=== PATIENT | female | born 2000 ===

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

== ENCOUNTER 2023-05-30 19:44 | Emergency (ER) | payer MEDICAID, SELFPAY ==
[2023-05-30 19:46] VITALS: BP 131/75; PULSE 86; RESP 18; TEMP 36.4; O2SAT 99; BMI 34.0
--- NOTE | 2023-05-30 19:47 | ED_ITS ---
HPI - General Adult General Chief complaint: Abdominal Pain Stated complaint: nausea, vomiting Time Seen by Provider: 05/30/23 20:25 Source: patient Mode of arrival: ambulatory Limitations: no limitations History of Present Illness HPI narrative: Patient is a 23-year-old female presenting to emergency department for evaluation of nausea and vomiting in the setting of recent positive testing. She has outpatient appointment scheduled with Dr. Rhett Man 06/26/2023. She denies abdominal pain, vaginal bleeding, fevers, chills, dysuria, urinary frequency/urgency/hesitancy. Last menstrual period 04/27/2023. Related Data Previous Rx's Medication Instructions Recorded medroxyprogesterone 10 mg tablet 10 mg PO DAILY #10 tabs 03/22/21 (Provera) medroxyprogesterone 10 mg tablet 10 mg PO DAILY 10 days #10 tabs 03/22/21 (Provera) desogestrel 0.15 mg-ethinyl 1 tab PO DAILY 28 days #28 tabs 07/18/21 estradiol 0.03 mg tablet (Apri) doxylamine succinate 25 mg tablet 25 mg PO BEDTIME PRN nausea and 05/30/23 (Unisom (doxylamine)) vomiting #14 tabs pyridoxine (vitamin B6) 25 mg 25 mg PO TID #30 tabs 05/30/23 tablet Allergies Allergy/AdvReac Type Severity Reaction Status Date / Time No Known Allergies Allergy Verified 04/25/21 11:12 Review of Systems Review of Systems: Yes all other systems are reviewed and are negative PMFSH Past Medical History Attestation statement: The following information was validated with the patient. Source: old records reviewed Social History Social History Alcohol intake: never Smoked in Last 30 Days: Yes Use of substances other than those prescribed or required for medical reasons: No Advance Directives: No Advance Directives Information Provided: No Patient : Yes Physical Exam ED Vital Signs: Vital Signs - 24 hr 05/30/23 19:46 05/30/23 22:47 05/30/23 22:47 Temperature 97.6 F 98.5 F Pulse Rate 86 75 75 Respiratory Rate 18 20 Blood Pressure 131/75 125/80 125/80 Pulse Oximetry 99 100 Oxygen Delivery Method Room Air Room Air 05/30/23 22:48 05/30/23 22:49 Temperature Pulse Rate 85 93 Respiratory Rate Blood Pressure 135/83 141/95 H Pulse Oximetry Oxygen Delivery Method BMI result Body Mass Index 34.0 Appearance: Alert.?Oriented to person, place and time. No acute distress.?Normal affect. Eyes: Pupils equal, round and reactive to light.? ENT: Pharynx normal.?? Neck: Normal inspection.? Neck supple.?? CVS: Heart sounds normal. Normal heart rate and rhythm.? Pulses normal.?? Respiratory: No respiratory distress.? Lung sounds clear to auscultation bilaterally?? Abdomen: Soft and non-tender. Normoactive bowel sounds. Skin: Skin warm and dry.? Normal skin color.? Extremities: No lower extremity edema.? Neuro: Moves all extremities spontaneously. Sensation intact bilaterally. Ambulates with normal steady gait. Course Course Course Narrative: This is an RME: Additional HPI, ROS, PE not included below will be deferred to primary provider. 23 year old female presents w/ nausea, dizziness, abd discomfort and late menses last period sometime in March. No vaginal bleeding or dc, fevers, chills, cp, sob, [place], vision changes . Two + at home preg tests Plan- labs UA Medical Decision Making Medical Decision Making MDM Narrative: Patient is a 23-year-old female presenting to emergency department for evaluation of nausea and vomiting in the setting of recent . Reviewed serum labs obtained from initial rapid medical examination, hCG appears consistent with of approximate 4-6 weeks gestation which correlates with her last menstrual period. I spoke with patient, she declines any abdominal pain, upper abdominal examination is benign, I do not have concern at this time for acute abdomen; appendicitis, diverticulitis, or ectopic . She is able to tolerate fluids as well as solids at this time. CBC is overall unremarkable, a mild leukocytosis which I suspect is reactive due to her vomiting, CMP is unremarkable; LFTs and lipase are within normal limits, low suspicion for cholecystitis, cholelithiasis, cholangitis, pancreatitis. I discussed management with pyridoxine in addition a Unisom, outpatient follow-up with medical sales associate. She is agreeable with this plan of care. Stable for discharge. Differential Diagnosis Differential Diagnoses: The differential diagnosis associated with the pre sentation includes (Gastroenteritis, associated nausea and vomiting, GERD, urinary tract infection, additional as per narrative above) Lab Data MDM Lab Attestation statement: I reviewed the patient's lab results. (As per narrative above) 05/30/23 19:59 05/30/23 19:59 Labs: Lab Results 05/30/23 05/30/23 05/30/23 Range/Units 19:59 19:59 19:59 WBC 13.3 H (4.8-10.8) X10*3/uL RBC 4.27 (4.20-5.50) X10*6/uL Hgb 12.0 (12.0-16.0) g/dl Hct 36.2 L (37.0-47.0) % MCV 84.8 (80.0-98.0) fL MCH 28.1 (27.0-33.0) pg MCHC 33.1 (31.0-35.0) g/dl RDW 14.0 (11.0-16.0) % Plt Count 407 H (160-400) X10*3/uL MPV 9.3 L (9.4-12.3) fL Immature Gran % (Auto) 0.4 (0.0-0.4) % Neut % (Auto) 63.3 (45-73) % Lymph % (Auto) 29.5 (20-40) % [place] % (Auto) 5.2 (2-11) % Eos % (Auto) 1.5 (0-4) % Baso % (Auto) 0.1 (0-2) % Lymph # (Auto) 3.9 (1.2-4.9) X10*3/uL [place] # (Auto) 0.7 (0.1-1.2) X10*3/uL Eos # (Auto) 0.2 (0.0-0.4) X10*3/uL Baso # (Auto) 0.0 (0.0-0.2) X10*3/uL Abs Immat Gran (auto) 0.06 H (0.00-0.03) X10*3/uL Absolute Neuts (auto) 8.4 H (2.0-8.3) x10*3/uL Absolute Nucleated RBC 0.000 (0.0-0.012) X10*3/uL Nucleated RBC % (auto) 0.0 (0.0-0.2) /100WBC Sodium 137 (135-145) mmol/L Potassium 3.5 (3.3-5.1) mmol/L Chloride 109 H (96-108) mmol/L Carbon Dioxide 21 L (22-29) mmol/L Anion Gap 11 L (12-20) BUN 7 L (9-16) mg/dL Creatinine 0.70 (0.5-1.4) mg/dL Estim Creat Clear Calc 123.1 Estimated GFR > 60 Random Glucose 91 (60-115) mg/dL Calcium 9.1 (8.4-10.2) mg/dL Magnesium 1.8 (1.6-2.6) mg/dL Total Bilirubin 0.5 (0.0-1.0) mg/dL AST 17 (5-31) U/L ALT 20 (0-31) U/L Alkaline Phosphatase 88 (39-117) U/L Total Protein 6.9 (6.5-8.0) g/dL Albumin 3.6 (3.5-5.0) g/dL Lipase 17 (8-78) U/L Beta HCG, Quant 995 mIU/mL Urine Color Urine Appearance Urine pH (5.0-9.0) Ur Specific [place] (1.005-1.025) Urine Protein (Neg-Trace) mg/dL Urine Glucose (UA) (Negative) mg/dL Urine Ketones (Negative) mg/dL Urine Blood (Negative) Urine Nitrite (Negative) Ur Leukocyte Esterase (Negative) Urine Test (NEGATIVE) 05/30/23 05/30/23 Range/Units 19:59 19:59 WBC (4.8-10.8) X10*3/uL RBC (4.20-5.50) X10*6/uL Hgb (12.0-16.0) g/dl Hct (37.0-47.0) % MCV (80.0-98.0) fL MCH (27.0-33.0) pg MCHC (31.0-35.0) g/dl RDW (11.0-16.0) % Plt Count (160-400) X10*3/uL MPV (9.4-12.3) fL Immature Gran % (Auto) (0.0-0.4) % Neut % (Auto) (45-73) % Lymph % (Auto) (20-40) % [place] % (Auto) (2-11) % Eos % (Auto) (0-4) % Baso % (Auto) (0-2) % Lymph # (Auto) (1.2-4.9) X10*3/uL [place] # (Auto) (0.1-1.2) X10*3/uL Eos # (Auto) (0.0-0.4) X10*3/uL Baso # (Auto) (0.0-0.2) X10*3/uL Abs Immat Gran (auto) (0.00-0.03) X10*3/uL Absolute Neuts (auto) (2.0-8.3) x10*3/uL Absolute Nucleated RBC (0.0-0.012) X10*3/uL Nucleated RBC % (auto) (0.0-0.2) /100WBC Sodium (135-145) mmol/L Potassium (3.3-5.1) mmol/L Chloride (96-108) mmol/L Carbon Dioxide (22-29) mmol/L Anion Gap (12-20) BUN (9-16) mg/dL Creatinine (0.5-1.4) mg/dL Estim Creat Clear Calc Estimated GFR Random Glucose (60-115) mg/dL Calcium (8.4-10.2) mg/dL Magnesium (1.6-2.6) mg/dL Total Bilirubin (0.0-1.0) mg/dL AST (5-31) U/L ALT (0-31) U/L Alkaline Phosphatase (39-117) U/L Total Protein (6.5-8.0) g/dL Albumin (3.5-5.0) g/dL Lipase (8-78) U/L Beta HCG, Quant mIU/mL Urine Color Yellow Urine Appearance Cloudy Urine pH 6.0 (5.0-9.0) Ur Specific [place] 1.020 (1.005-1.025) Urine Protein Negative (Neg-Trace) mg/dL Urine Glucose (UA) Negative (Negative) mg/dL Urine Ketones Negative (Negative) mg/dL Urine Blood Negative (Negative) Urine Nitrite Negative (Negative) Ur Leukocyte Esterase Negative (Negative) Urine Test POSITIVE H (NEGATIVE) Tests considered The following testing was considered but not selected: i considered pelvic/ ultrasound, however patient is not having any abdominal pain, or vaginal bleeding that would warrant emergent ultrasound at this time. In addition given early gestation, advised outpatient follow-up with medical sales associate. Prescription Management I considered prescription management with: Other (Antiemetics as per discharge) Discharge Plan Discharge Clinical Impression: Nausea and vomiting during Patient Disposition: Home, Self-Care Instructions: Nausea and Vomiting in (ED) Additional Instructions: Please follow-up with your OB doctor as scheduled, I have sent prescriptions for the nausea medication to your pharmacy. You may return back to emergency department any new or worsening symptoms or c oncerns. Prescriptions: New pyridoxine (vitamin B6) 25 mg tablet 25 mg PO TID Qty: 30 0RF Unisom (doxylamine) 25 mg tablet 25 mg PO BEDTIME PRN (Reason: nausea and vomiting) Qty: 14 0RF No Action medroxyprogesterone [Provera] 10 mg tablet 10 mg PO DAILY Qty: 10 0RF medroxyprogesterone [Provera] 10 mg tablet 10 mg PO DAILY 10 Days Qty: 10 0RF desogestrel-ethinyl estradiol [Apri] 0.15-0.03 mg tablet 1 tab PO DAILY 28 Days Qty: 28 2RF Referrals: Jacky Delaney MD [Physician] - Interventions: ED Discharge Assessment Last Done: 05/30/23 23:35 Discharge Date/Time: 05/30/23 23:36
--- NOTE | 2023-05-30 19:54 | MHC.EDTECH ---
This tech obtained labs,UA in triage area. Unable to get ortho's due to area, stitch bonding machine drawer in was made aware
[2023-05-30 20:04] LABS: MANUAL DIFF FLAG NO
[2023-05-30 20:05] LABS: Basophils Percent Auto 0.1 % (0-2); Eosinophils Absolute Auto 0.2 X10*3/uL (0.0-0.4); Eosinophils Percent Auto 1.5 % (0-4); Hematocrit 36.2 % (37.0-47.0); Imm Gran Abs Auto 0.06 X10*3/uL (0.00-0.03); Imm Gran Pct Auto 0.4 % (0.0-0.4); Lymphocytes Absolute Auto 3.9 X10*3/uL (1.2-4.9); Lymphocytes Percent Auto 29.5 % (20-40); Mean Corpuscular HGB Conc 33.1 g/dl (31.0-35.0); Mean Corpuscular Hemoglobin 28.1 pg (27.0-33.0); Mean Corpuscular Volume 84.8 fL (80.0-98.0); Mean Platelet Volume 9.3 fL (9.4-12.3); Monocytes Absolute Auto 0.7 X10*3/uL (0.1-1.2); Monocytes Percent Auto 5.2 % (2-11); Neutrophils Absolute Auto 8.4 x10*3/uL (2.0-8.3); Neutrophils Percent Auto 63.3 % (45-73); Platelet Count 407 X10*3/uL (160-400); Red Blood Count 4.27 X10*6/uL (4.20-5.50); White Blood Count 13.3 X10*3/uL (4.8-10.8)
[2023-05-30 20:08] LABS: Appearance Urine Cloudy; Color Urine Yellow; Glucose Urine UA Negative (Negative); Leukocyte Esterase Urine Negative (Negative); Nitrite Urine Negative (Negative); Urine Blood Negative (Negative); Urine Ketones Negative (Negative); Urine Protein Negative (Neg-Trace)
[2023-05-30 20:24] LABS: Alanine Aminotransferase 20 U/L (0-31); Albumin Level 3.6 g/dL (3.5-5.0); Alkaline Phosphatase 88 U/L (39-117); Anion Gap 11 (12-20); Aspartate Amino Transferase 17 U/L (5-31); Bilirubin Total 0.5 mg/dL (0.0-1.0); Blood Urea Nitrogen 7 mg/dL (9-16); Calcium 9.1 mg/dL (8.4-10.2); Carbon Dioxide 21 mmol/L (22-29); Chloride 109 mmol/L (96-108); Creatinine Clr Calc Pharmacy 123.1; Estimated Glomerular Filt Rate > 60; Glucose Random 91 mg/dL (60-115); Lipase 17 U/L (8-78); Magnesium 1.8 mg/dL (1.6-2.6); Potassium 3.5 mmol/L (3.3-5.1); Sodium 137 mmol/L (135-145); Total Protein 6.9 g/dL (6.5-8.0)
[2023-05-30 20:31] LABS: HCG Quantitative 995 mIU/mL
[2023-05-30 20:58] LABS: UPreg QC Valid YES; Urine Pregnancy POSITIVE (NEGATIVE)
[2023-05-30 22:47] VITALS: BP 125/80; PULSE 75; RESP 20; TEMP 36.9; O2SAT 100
[2023-05-30 22:48] VITALS: BP 135/83; PULSE 85
[2023-05-30 22:49] VITALS: BP 141/95; PULSE 93
== END 2023-05-30 23:36 | disposition home or self-care (01) ==
PROVIDERS: Physician Assistant; Emergency Provider Student in an Organized Health Care Education/Training Program
DX: O26.891 Other specified pregnancy related conditions, first trimester (principal); R11.2 Nausea with vomiting, unspecified; Z3A.01 Less than 8 weeks gestation of pregnancy
CPT/HCPCS: 36415; 80053; 81003; 81025; 83690; 83735; 84702; 85025; 99283; 99284

== ENCOUNTER 2023-06-03 21:04 | Emergency (ER) | payer MEDICAID, SELFPAY ==
[2023-06-03 21:09] VITALS: BP 139/74; PULSE 82; RESP 16; TEMP 36.4; O2SAT 99; BMI 34.0
[2023-06-04] VITALS: BP 140/74; PULSE 80; RESP 16; TEMP 36.5; O2SAT 99
--- NOTE | 2023-06-04 00:08 | ED.GENADULT ---
HPI - General Adult General Chief complaint: General Medical Stated complaint: / leaking water? Time Seen by Provider: 06/03/23 23:40 Source: patient Mode of arrival: ambulatory Limitations: no limitations History of Present Illness HPI narrative: Patient comes in the emergency room complaining of vaginal fluid leakage. Patient states she is approximately 5-6 weeks of gestational age, she is a this time. Patient denies any abdominal cramping, no vaginal bleeding, no pain. Patient denies hematuria or dysuria, no URI or UTI symptoms. Patient states she was in the shower and felt some fluid running down her leg, was not sure what happened. It only happened once. Related Data Previous Rx's Medication Instructions Recorded medroxyprogesterone 10 mg tablet 10 mg PO DAILY #10 tabs 03/22/21 (Provera) medroxyprogesterone 10 mg tablet 10 mg PO DAILY 10 days #10 tabs 03/22/21 (Provera) desogestrel 0.15 mg-ethinyl 1 tab PO DAILY 28 days #28 tabs 07/18/21 estradiol 0.03 mg tablet (Apri) doxylamine succinate 25 mg tablet 25 mg PO BEDTIME PRN nausea and 05/30/23 (Unisom (doxylamine)) vomiting #14 tabs pyridoxine (vitamin B6) 25 mg 25 mg PO TID #30 tabs 05/30/23 tablet nitrofurantoin 100 mg PO Q12H 7 days #14 caps 06/04/23 monohydrate/macrocrystals 100 mg capsule (Macrobid) Allergies Allergy/AdvReac Type Severity Reaction Status Date / Time No Known Allergies Allergy Verified 06/03/23 21:08 Review of Systems Review of Systems: Constitutional : No Weight loss, No Fever, No Chills, No Night Sweats, No Fatigue, No Malaise ENT/Mouth : No Hearing loss, No Ear Pain, No Nasal Congestion, No Sinus Pain, No Hoarseness, No sore throat, No Rhinorrhea, No Swallowing Difficulty Eyes: No Eye Pain, No Swelling, No Redness, No Foreign Body, No Discharge, No Vision Changes Cardiovascular : No Chest Pain, No SOB, No Dyspnea on Exertion, No Orthopnea, No Edema, No Palpitations Respiratory : No Cough, No Sputum, No Wheezing, No Smoke Exposure, No Dyspnea Gastrointestinal : No Nausea, No Vomiting, No Diarrhea, No Constipation, No abdominal Pain, No Hematochezia, No Melena Genitourinary : no irregular bleeding, No Dysuria, No Urinary Frequency, No Hematuria, No Urinary Incontinence, No Urgency, No Flank Pain, No Urinary Flow Changes, No Hesitancy : Vaginal fluid leakage in Musculoskeletal : No joint pain, No Myalgias, No Joint Swelling Skin : No Skin Lesions, No rash Neuro : No Weakness, No Numbness, No Paresthesias, No Loss of Consciousness, No Dizziness, No Headache Psych : No Anxiety/Panic, No Depression, No SI/HI/AH/VH, No Social Issues, Heme/Lymph: No Bruising, No Bleeding,No Lymphadenopathy Endocrine : No Polyuria, No Polydipsia, No Temperature Intolerance [facility] Social History Social History Alcohol intake: never Smoked in Last 30 Days: No Use of substances other than those prescribed or required for medical reasons: No Advance Directives: No Advance Directives Information Provided: No Physical Exam ED Vital Signs: Vital Signs - 24 hr 06/03/23 21:09 06/04/23 00:00 Temperature 97.6 F 97.7 F Pulse Rate 82 80 Respiratory Rate 16 16 Blood Pressure 139/74 140/74 H Pulse Oximetry 99 99 Oxygen Delivery Method Room Air Room Air BMI result Body Mass Index 34.0 Const Other: Appearance: Alert. Oriented X3. No acute distress. Eyes: Pupils equal, round and reactive to light. ENT: Pharynx normal. Neck: Normal inspection. Neck supple. No lymph nodes noted. No crepitus CVS: Normal heart rate and rhythm. Pulses normal. Normal S1 and S2 Respiratory: No respiratory distress. Breath sounds normal. No Wheezing. No rales Abdomen: Soft and nontender. No rigidity. No distention. Skin: Skin warm and dry. Normal skin color. Normal skin turgor. Extremities: No lower extremity edema. No Lacerations. No Rash Neuro: Oriented X 3. No motor deficit. No sensory deficit. Moving all extremities. No slurred speech. CN 2 through 12 grossly intact Psych: calm, cooperative, normal affect Medical Decision Making Medical Decision Making MDM Narrative: -my interpretation of labs, patient's hCG is 3497 -my interpretation of ultrasound, positive intrauterine without pole -I discussed the ultrasound findings with the patient, by ultrasound she is 5 weeks +1 day, estimated date of delivery is 02/02/2024, trace fluid in the endometrial canal versus small subchorionic hemorrhage. I discussed with the patient the ultrasound findings, discussed with the patient that it is still early in the . Her could evolve into a normal or become a miscarriage. Patient has an appointment pending with Dr. Delaney -UTI positive, patient will be prescribed Macrobid Differential Diagnosis Differential Diagnoses: The differential diagnosis associated with the presentation includes (Subchorionic hemorrhage, physiologic fluid, threatened ) Lab Data MDM Lab Attestation statement: I reviewed the patient's lab results. 06/03/23 21:19 06/03/23 21:17 Labs: Lab Results 06/03/23 06/03/23 06/03/23 Range/Units 21:17 21:19 21:19 WBC 15.1 H (4.8-10.8) X10*3/uL RBC 4.57 (4.20-5.50) X10*6/uL Hgb 13.0 (12.0-16.0) g/dl Hct 38.9 (37.0-47.0) % MCV 85.1 (80.0-98.0) fL MCH 28.4 (27.0-33.0) pg MCHC 33.4 (31.0-35.0) g/dl RDW 14.2 (11.0-16.0) % Plt Count 457 H (160-400) X10*3/uL MPV 9.4 (9.4-12.3) fL Absolute Nucleated RBC 0.000 (0.0-0.012) X10*3/uL Nucleated RBC % (auto) 0.0 (0.0-0.2) /100WBC Sodium 137 (135-145) mmol/L Potassium 3.9 (3.3-5.1) mmol/L Chloride 106 (96-108) mmol/L Carbon Dioxide 23 (22-29) mmol/L Anion Gap 12 (12-20) BUN 9 (9-16) mg/dL Creatinine 0.93 (0.5-1.4) mg/dL Estim Creat Clear Calc 92.7 Estimated GFR > 60 Random Glucose 84 (60-115) mg/dL Calcium 9.5 (8.4-10.2) mg/dL Total Bilirubin 0.2 (0.0-1.0) mg/dL AST 22 (5-31) U/L ALT 25 (0-31) U/L Alkaline Phosphatase 86 (39-117) U/L Total Protein 7.4 (6.5-8.0) g/dL Albumin 3.9 (3.5-5.0) g/dL Beta HCG, Quant 3497 mIU/mL Urine Color Urine Appearance Urine pH (5.0-9.0) Ur Specific [place] (1.005-1.025) Urine Protein (Neg-Trace) mg/dL Urine Glucose (UA) (Negative) mg/dL Urine Ketones (Negative) mg/dL Urine Blood (Negative) Urine Nitrite (Negative) Ur Leukocyte Esterase (Negative) Urine RBC (0-2) /HPF Urine WBC (0-5) /HPF Ur Squamous Epith Cells (0-2) /HPF Urine Bacteria (None Seen) Hyaline Casts (0-2) /LPF 06/04/23 Range/Units 00:47 WBC (4.8-10.8) X10*3/uL RBC (4.20-5.50) X10*6/uL Hgb (12.0-16.0) g/dl Hct (37.0-47.0) % MCV (80.0-98.0) fL MCH (27.0-33.0) pg MCHC (31.0-35.0) g/dl RDW (11.0-16.0) % Plt Count (160-400) X10*3/uL MPV (9.4-12.3) fL Absolute Nucleated RBC (0.0-0.012) X10*3/uL Nucleated RBC % (auto) (0.0-0.2) /100WBC Sodium (135-145) mmol/L Potassium (3.3-5.1) mmol/L Chloride (96-108) mmol/L Carbon Dioxide (22-29) mmol/L Anion Gap (12-20) BUN (9-16) mg/dL Creatinine (0.5-1.4) mg/dL Estim Creat Clear Calc Estimated GFR Random Glucose (60-115) mg/dL Calcium (8.4-10.2) mg/dL Total Bilirubin (0.0-1.0) mg/dL AST (5-31) U/L ALT (0-31) U/L Alkaline Phosphatase (39-117) U/L Total Protein (6.5-8.0) g/dL Albumin (3.5-5.0) g/dL Beta HCG, Quant mIU/mL Urine Color Yellow Urine Appearance Clear Urine pH 6.5 (5.0-9.0) Ur Specific [place] 1.020 (1.005-1.025) Urine Protein Negative (Neg-Trace) mg/dL Urine Glucose (UA) Negative (Negative) mg/dL Urine Ketones Trace (Negative) mg/dL Urine Blood Negative (Negative) Urine Nitrite Negative (Negative) Ur Leukocyte Esterase Small (1+) H (Negative) Urine RBC 0-2 (0-2) /HPF Urine WBC 0-5 (0-5) /HPF Ur Squamous Epith Cells 6-10 (0-2) /HPF Urine Bacteria Trace (None Seen) Hyaline Casts 3-5 (0-2) /LPF Radiology Impression Discussion of test interpretation with radiology: I have reviewed the radiologist's reading. Radiologist Impression: FINDINGS: There is an intrauterine gestational sac with mean sac diameter of 6.3 mm corresponding to a gestational age of 5 weeks, 1 day. A yolk sac is identified. Neither a pole or cardiac activity is detected at this time. There is a small hypoechoic collection adjacent to the gestational sac measuring 6 x 3 x 5 mm which could represent fluid within the adjacent endometrial canal, or a tiny subchorionic hemorrhage. HUBERT (estimated date of delivery):? 02/02/2024 +/- 4 days. ? MATERNAL ADNEXA: ? ? The right maternal ovary measures 2.9 x 2.2 x 2.4 cm. The left maternal ovary measures 3.1 x 2.5 x 3.1 cm.? There is a 2.2 cm corpus luteum in the left ovary. There is no significant maternal adnexal mass.? No maternal pelvic ascites. US/US OB pelvic and transvaginal IMPRESSION: 1. Single intrauterine gestation with ultrasound gestational age of? 5 weeks, 1 day +/- 4 days. No pole is identified at this time, however this is not abnormal for the stage in the . 2. Estimated date of delivery is 02/02/2024 +/- 4 days. 3. Trace amount of fluid within endometrial canal versus small subchorionic hemorrhage. 4. No maternal adnexal mass or pelvic ascites. Discharge Plan Discharge Clinical Impression: Currently , Urinary tract infection during Patient Disposition: Home, Self-Care Instructions: First Trimester (ED) Additional Instructions: Please follow-up with your primary care physician tomorrow. If you have any worsening or new symptoms, please return to the emergency room or call 911 Prescriptions: New nitrofurantoin monohyd/m-cryst [Macrobid] 100 mg capsule 100 mg PO Q12H 7 Days Qty: 14 0RF Rx Instructions: must administer with a meal/food No Action medroxyprogesterone [Provera] 10 mg tablet 10 mg PO DAILY Qty: 10 0RF medroxyprogesterone [Provera] 10 mg tablet 10 mg PO DAILY 10 Days Qty: 10 0RF pyridoxine (vitamin B6) 25 mg tablet 25 mg PO TID Qty: 30 0RF Unisom (doxylamine) 25 mg tablet 25 mg PO BEDTIME PRN (Reason: nausea and vomiting) Qty: 14 0RF desogestrel-ethinyl estradiol [Apri] 0.15-0.03 mg tablet 1 tab PO DAILY 28 Days Qty: 28 2RF
--- NOTE | 2023-06-04 00:55 | PC.NURSE ---
pt resting quietly while on phone no apparent distress denies pain at this time aox4 steady/independent gait
[2023-06-04 02:00] VITALS: BP 133/68; PULSE 76; RESP 14; TEMP 36.7; O2SAT 100
--- NOTE | 2023-06-04 02:11 | PC.NURSE ---
Discharge instructions given and explained to pt No apparent distress gait steady and independent aox4 all of pt's questions answered
== END 2023-06-04 02:10 | disposition home or self-care (01) ==
PROVIDERS: Emergency Provider Emergency Medicine
DX: O23.41 Unspecified infection of urinary tract in pregnancy, first trimester (principal)
CPT/HCPCS: 36415; 76801; 76817; 80053; 81001; 84702; 85027; 87086; 99284